=== PATIENT | female | born 1965 | race Caucasian/White ===

== ENCOUNTER 2018-12-05 11:54 | Emergency (ER) | payer SELFPAY ==
[~2018-12-05] VITALS: Ht 152.4 cm; Wt 58.1 kg
[2018-12-05] MEDS ORDERED: Ocuflox5 ML RIGHTEYE (13:02)
== END 2018-12-05 13:07 | disposition home or self-care (01) ==
LOC: ER 11:54
DX: S05.01XA Injury of conjunctiva and corneal abrasion without foreign body, right eye, initial encounter (principal); W22.8XXA Striking against or struck by other objects, initial encounter; Z88.2 Allergy status to sulfonamides; F17.200 Nicotine dependence, unspecified, uncomplicated
CPT/HCPCS: 99282